=== PATIENT | male | born 1980 | race Caucasian/White ===

== ENCOUNTER → 2016-12-08 | Outpatient (CLI) | payer BC ==
[~2016-12-08] MED LIST: METH1TAB12 PO
== END | disposition home or self-care (01) ==
LOC: C.PATHSPEC 15:35
PROVIDERS: ATTEND Urology
DX: Z30.2 Encounter for sterilization (principal)

== ENCOUNTER 2017-01-01 21:36 | Inpatient (IN) | payer BC ==
[~2017-01-01] VITALS: Ht 177.8 cm; Wt 93.8 kg
[2017-01-01 21:53] VITALS: Ht 177.8 cm; Wt 93.8 kg
[2017-01-01] MEDS ORDERED: SODIUM CHLORIDE 0.9% 1000ML 1,000 ML IV STA ×3 (22:16→23:56)
[2017-01-01 22:37] LABS: URINE APPEARANCE CLEAR (CLEAR); URINE BILIRUBIN NEG (NEG); URINE COLOR ORANGE; URINE NITRITE NEG (NEG); URINE PH 5.5 (4.5-7.5); URINE SPECIFIC GRAVITY 1.006 (1.000-1.030); UROBILINOGEN NEG (NEG)
[2017-01-01 22:39] LABS: MANUAL MICROSCOPIC REQUIRED? NO; REVIEW REQ? NO
[2017-01-01 22:42] LABS: BASO % 0.1 %; BASO ABS # 0.01 K/uL (0-0.2); COMPLETE YES; EOS % 2.4 %; HEMATOCRIT 44.7 % (42-52); IG% 0.2 %; LYMPH % 23.7 %; LYMPH ABS # 2.72 K/uL (1.2-3.4); MEAN CELL VOLUME 86.1 fL (80-100); MEAN CORPUSCULAR HEMOGLOBIN 30.3 pg (25-34); MEAN CORPUSCULAR HGB CONC 35.1 g/dl (32-36); MEAN PLATELET VOLUME 10.4 fL (7.4-10.4); MONO % 9.4 %; NEUT % 64.2 %; PLATELET COUNT 237 K/uL (130-400); RED BLOOD COUNT 5.19 M/uL (4.7-6.1); WHITE BLOOD COUNT 11.49 K/uL (4.8-10.8)
[2017-01-01 22:59] LABS: ALT/SGPT 327 U/L (12-78); BLOOD UREA NITROGEN 14 mg/dl (7-18); BUN/CREATININE RATIO 12.5 (10-20); CALCIUM 8.7 mg/dl (8.5-10.1); CARBON DIOXIDE 24 mmol/L (21-32); CHLORIDE 106 mmol/L (98-107); GLUCOSE 110 mg/dl (70-99); SODIUM 141 mmol/L (136-145)
[2017-01-01] MEDS ORDERED: METH1TAB12 PO (23:04)
--- NOTE | 2017-01-01 23:21 | EMERGENCY ROOM VISIT NOTE ---
History Report prepared by Amadeo: Janet Cervantes Under the Supervision of: Dr. Josh Shannon M.D. First contact with patient: 22:01 Chief Complaint: PAIN (GENERALIZED) Stated Complaint: SEVER MUSCLE SORENESS,BROWN URINE History of Present Illness The patient is a 36 year old male who presents to the Emergency Room with complaints of worsening pain with onset two days ago. He rates his pain as a 7/ 10. The patient worked out two days ago. After his work out, he developed some soreness. He notes that the pain is worse when he moves his arms and that the pain is worse in his shoulders. He has had restricted range of motion in his arms. The patient became concerned when he noticed that his urine was brown this evening. Source of History: patient Onset: two days ago Position: shoulder Symptom Intensity: 7/10 Quality: other (muscle pain) Modifying Factors (Worsening): movement Note: This evening, the patient's urine was brown. Review of Systems See HPI for pertinent positives & negatives. A total of 10 systems reviewed and were otherwise negative. Past Medical & Surgical Medical Problems: (1) No Known Active Medical Problems (2) Rhabdomyolysis Family History Cancer Social History Smoking Status: Never Smoker Marital Status: Housing Status: lives with family Occupation Status: employed Current/Historical Medications Scheduled Methylphenidate Hcl (Ritalin), 20 MG PO DAILY Allergies Coded Allergies: Penicillins (Verified Allergy, Mild, RASH, 01/02/17) Physical Exam Vital Signs Date Time Temp Pulse Resp B/P Pulse Ox O2 Delivery O2 Flow Rate FiO2 01/02/17 00:30 64 18 121/73 97 Room Air 01/01/17 22:34 66 01/01/17 22:26 97 Room Air 01/01/17 22:24 78 20 122/79 97 Room Air 147/89 124/89 01/01/17 21:53 37.1 74 18 136/90 97 Room Air Physical Exam GENERAL: Patient is a healthy-appearing well-nourished HEAD: Normocephalic atraumatic EYES: Ocular movements intact pupils equal and react to light OROPHARYNX mucous membranes are moist no exudates present no erythema or edema present NECK: Supple no nuchal rigidity CHEST: Good equal expansion LUNGS: Clear and equal to auscultation CARDIAC: Normal S1 and S2 ABDOMEN: Soft nontender no guarding BACK: No CVA tenderness EXTREMITIES: No pain upon palpation normal muscle strength in all groups no clubbing cyanosis or edema NEURO: Patient is following commands is answering questions appropriately. Alert and oriented x3 Cranial Nerves 2-12 grossly intact Medical Decision & Procedures Laboratory Results Test 01/01/17 22:05 01/01/17 22:10 01/01/17 22:22 Urine Color ORANGE Urine Appearance CLEAR (CLEAR) Urine pH 5.5 (4.5-7.5) Urine Specific [place] 1.006 (1.000-1.030) Urine Protein 1+ (NEG) Urine Glucose (UA) NEG (NEG) Urine Ketones NEG (NEG) Urine Occult Blood 3+ (NEG) Urine Nitrite NEG (NEG) Urine Bilirubin NEG (NEG) Urine Urobilinogen NEG (NEG) Urine Leukocyte Esterase NEG (NEG) Urine WBC (Auto) 1-5 /hpf (0-5) Urine RBC (Auto) 0-4 /hpf (0-4) Urine Hyaline Casts (Auto) 1-5 /lpf (0-5) Urine Epithelial Cells (Auto) 5-10 /lpf (0-5) Urine Bacteria (Auto) NEG (NEG) Urine Opiates Screen NEG (NEG) Urine Methadone, Qualitative NEG (NEG) Urine Barbiturates NEG (NEG) Urine Phencyclidine (PCP) Level NEG (NEG) Ur Amphetamine/Methamphetamine NEG (NEG) MDMA (Ecstasy) Screen NEG (NEG) Urine Benzodiazepines Screen NEG (NEG) Urine Cocaine Metabolite NEG (NEG) Urine Marijuana (THC) NEG (NEG) Creatine Kinase MB 174.5 ng/ml (0.5-3.6) Creatine Kinase MB Ratio 0.3 (0-3.0) Troponin I < 0.015 ng/ml (0-0.045) Thyroid Stimulating Hormone (TSH) 3.660 uIu/ml (0.300-4.500) Bedside Glucose 98 mg/dl (70-99) Labs reviewed by ED physician. Medications Administered Medications (Trade) Dose Ordered Sig/Rachel Route Start Time Stop Time Status Last Admin Dose Admin Sodium Chloride 1,000 ml @ 999 mls/hr Q1H1M STAT IV 01/01/17 22:16 01/01/17 23:16 DC 01/01/17 22:17 999 MLS/HR Sodium Chloride 1,000 ml @ 999 mls/hr Q1H1M STAT IV 01/01/17 23:09 01/02/17 00:09 DC 01/01/17 23:09 999 MLS/HR Sodium Chloride (Nss 1000ml) 1,000 ml @ 999 mls/hr Q1H1M STAT IV 01/01/17 23:56 01/02/17 00:56 DC 01/01/17 23:56 999 MLS/HR ECG Indication: weakness Rate (beats per minute): 70 Rhythm: normal sinus Findings: no acute ischemic change, no ectopy ED Course 2313: Past medical records reviewed. The patient was evaluated in room C7. A complete history and physical examination was performed. 2216: Sodium Chloride 1000 ml @ 999 mls/hr IV 2309: Sodium Chloride 1000 ml @ 999 mls/hr IV 2356: Sodium Chloride 1000 ml @ 999 mls/hr IV 0030: I discussed the case with Dr. Ozuna ([facility]); he will further evaluate the patient but would like me to consult the form coverer. 0042: I discussed the case with Dr. Fernandes (Nephrology); she agrees with the plan to admit the patient. Medical Decision The patient is a 36 year old male who presents to the ED with complaints of muscle pain. Differential diagnosis: Etiologies such as metabolic, infection, hypo/hyperglycemia, electrolyte abnormalities, cardiac sources, intracerebral event, toxicologic, neurologic, as well as others were entertained. This is a 36-year-old male presents emergency Department with cocoa colored urine. The patient was doing heavy weightlifting on Sunday and has had sore upper muscles since then. He has elevations in his liver enzymes which I believe are incidental to his rhabdomyolysis. His CK is 64,000. The patient was given 3 L of fluid in the emergency department. I did discuss the case with the hospitalist service who agreed to see the patient. Patient was in agreement with the treatment plan. Consults Time Called: 0028 Consulting Physician: Dr. Ozuna ([facility]) Returned Call: 0030 I discussed the case with Dr. Ozuna ([facility]); he will further evaluate the patient but would like me to consult the form coverer. Additional Consults: Time Called: 0040 Consulted Physician: Dr. Fernandes (Nephrology) Returned Call: 004 Additional Comments: I discussed the case with Dr. Fernandes (Nephrology); she agrees with the plan to admit the patient. Impression Primary Impression: Rhabdomyolysis Scribe Attestation The scribe's documentation has been prepared under my direction and personally reviewed by me in its entirety. I confirm that the note above accurately reflects all work, treatment, procedures, and medical decision making performed by me. Departure Information Dispostion Being Evaluated By Hospitalist Referrals Lesly Espitia M.D. (PCP) Patient Instructions [facility] Problem Qualifiers Primary Impression: Rhabdomyolysis Rhabdomyolysis type: non-traumatic Qualified Codes: M62.82 - Rhabdomyolysis
[2017-01-01 23:26] LABS: ALKALINE PHOSPHATASE 91 U/L (45-117); AST/SGOT 1299 U/L (15-37)
[2017-01-02 00:39] LABS: CKMB/CK RATIO 0.3 (0-3.0)
[2017-01-02] MEDS ORDERED: ACETAMINOPHEN 325 MG TAB PO PRN (01:30)
[2017-01-02] MEDS ORDERED: POLYETHYLENE (MIRALAX) 17 GM PACK PO PRN (01:30)
[2017-01-02] MEDS ORDERED: MAGNESIUM HYDROXIDE SUSP 30 ML UDC PO PRN (01:30)
[2017-01-02] MEDS ORDERED: ONDANSETRON INJ 2 MG/ML 2 ML VIAL IV PRN (01:30)
[2017-01-02] MEDS ORDERED: ZOLPIDEM TARTRATE 5 MG TAB PO PRN (01:30)
[2017-01-02] MEDS ORDERED: ALUMINUM/MAGNESIUM/SIMETH (MAALOX MAX) 30 ML UDC PO PRN (01:30)
--- NOTE | 2017-01-02 01:50 | History and Physical ---
History & Physical Date & Time of Service: Jan 02, 2017 at 01:38 Chief Complaint: Sever Muscle Soreness,Brown Urine Primary Care Physician: Lesly Espitia M.D. History of Present Illness Source: patient 36 y/o M who denies a significant medical history aside from ADHD. Pt started a weight lifting regimen 2 days prior after abstaining for an extended period. He developed muscle soreness and brown urine over the past 2 days. Labs drawn in the ER reveal a CK of 65,000 with a normal renal function. Past Medical/Surgical History ADHD Family History Cancer Mother from ovarian CA Does not know his father Social History Pt is a post-doc researcher at [employer] - he does not drink or smoke Smoking Status: Never Smoker Marital Status: Occupational Status: employed Allergies Coded Allergies: Penicillins (Verified Allergy, Mild, RASH, 01/02/17) Home Medications Scheduled Methylphenidate Hcl (Ritalin), 20 MG PO DAILY Review of Systems Constitutional: No chills, No fever, No sweats Eyes: No eye pain, No worsening of vision ENT: No hearing loss, No nasal symptoms Respiratory: No cough, No sputum, No wheezing Cardiovascular: No PND, No chest pain, No orthopnea Abdomen: No nausea, No pain, No vomiting Musculoskeletal: + muscle pain, No joint pain Genitourinary - Male: + problem reported (Brown colored urine), No dysuria, No hematuria Neurologic: No memory loss, No paralysis, No weakness Psychiatric: No depression symptoms Endocrine: No fatigue Hematologic / Lymphatic: No abnormal bleeding/bruising Integumentary: No rash Allergic / Immunologic: No environmental allergies Physical Exam Vital Signs Date Time Temp Pulse Resp B/P Pulse Ox O2 Delivery O2 Flow Rate FiO2 01/02/17 00:30 64 18 121/73 97 Room Air 01/01/17 22:34 66 01/01/17 22:26 97 Room Air 01/01/17 22:24 78 20 122/79 97 Room Air 147/89 124/89 01/01/17 21:53 37.1 74 18 136/90 97 Room Air General Appearance: WD/WN, no apparent distress Head: normocephalic, atraumatic Eyes: normal inspection, PERRL, EOMI ENT: normal ENT inspection, pharynx normal Neck: supple, no JVD Respiratory/Chest: chest non-tender, lungs clear, normal breath sounds, no respiratory distress, no accessory muscle use Cardiovascular: regular rate, rhythm, no edema, no gallop, no JVD, no murmur, normal peripheral pulses Abdomen/GI: normal bowel sounds, non tender, soft Back: normal inspection, no CVA tenderness Extremities/Musculoskelatal: normal inspection, no calf tenderness, normal capillary refill, no pedal edema, normal range of motion Neurologic/Psych: magnetic locater II-XII nml as tested, no motor/sensory deficits, alert, normal mood/affect, normal reflexes, oriented x 3 Skin: normal color, warm/dry, no rash Diagnostics Laboratory Results Results Past 24 Hours Test 01/01/17 22:05 01/01/17 22:10 01/01/17 22:22 Range/Units Urine Color ORANGE Urine Appearance CLEAR CLEAR Urine pH 5.5 4.5-7.5 Urine Specific [place] 1.006 1.000-1.030 Urine Protein 1+ NEG Urine Glucose (UA) NEG NEG Urine Ketones NEG NEG Urine Occult Blood 3+ NEG Urine Nitrite NEG NEG Urine Bilirubin NEG NEG Urine Urobilinogen NEG NEG Urine Leukocyte Esterase NEG NEG Urine WBC (Auto) 1-5 0-5 /hpf Urine RBC (Auto) 0-4 0-4 /hpf Urine Hyaline Casts (Auto) 1-5 0-5 /lpf Urine Epithelial Cells (Auto) 5-10 0-5 /lpf Urine Bacteria (Auto) NEG NEG White Blood Count 11.49 4.8-10.8 K/uL Red Blood Count 5.19 4.7-6.1 M/uL Hemoglobin 15.7 14.0-18.0 g/dL Hematocrit 44.7 42-52 % Mean Corpuscular Volume 86.1 80-100 fL Mean Corpuscular Hemoglobin 30.3 25-34 pg Mean Corpuscular Hemoglobin Concent 35.1 32-36 g/dl Platelet Count 237 130-400 K/uL Mean Platelet Volume 10.4 7.4-10.4 fL Neutrophils (%) (Auto) 64.2 % Lymphocytes (%) (Auto) 23.7 % Monocytes (%) (Auto) 9.4 % Eosinophils (%) (Auto) 2.4 % Basophils (%) (Auto) 0.1 % Neutrophils # (Auto) 7.38 1.4-6.5 K/uL Lymphocytes # (Auto) 2.72 1.2-3.4 K/uL Monocytes # (Auto) 1.08 0.11-0.59 K/uL Eosinophils # (Auto) 0.28 0-0.5 K/uL Basophils # (Auto) 0.01 0-0.2 K/uL RDW Standard Deviation 39.4 36.4-46.3 fL RDW Coefficient of Variation 12.4 11.5-14.5 % Immature Granulocyte % (Auto) 0.2 % Immature Granulocyte # (Auto) 0.02 0.00-0.02 K/uL Sodium Level 141 136-145 mmol/L Potassium Level 4.0 3.5-5.1 mmol/L Chloride Level 106 98-107 mmol/L Carbon Dioxide Level 24 21-32 mmol/L Anion Gap 11.0 3-11 mmol/L Blood Urea Nitrogen 14 7-18 mg/dl Creatinine 1.10 0.60-1.40 mg/dl Est Creatinine Clear Calc Drug Dose 108.8 ml/min Estimated GFR () 101.0 Estimated GFR (Non- 87.1 BUN/Creatinine Ratio 12.5 10-20 Random Glucose 110 70-99 mg/dl Calcium Level 8.7 8.5-10.1 mg/dl Total Bilirubin 0.4 0.2-1 mg/dl Direct Bilirubin < 0.1 0-0.2 mg/dl Aspartate Amino Transf (AST/SGOT) 1299 15-37 U/L Alanine Aminotransferase (ALT/SGPT) 327 12-78 U/L Alkaline Phosphatase 91 45-117 U/L Total Creatine Kinase 40240 39-308 U/L Creatine Kinase MB 174.5 0.5-3.6 ng/ml Creatine Kinase MB Ratio 0.3 0-3.0 Troponin I < 0.015 0-0.045 ng/ml Total Protein 7.6 6.4-8.2 gm/dl Albumin 3.7 3.4-5.0 gm/dl Thyroid Stimulating Hormone (TSH) 3.660 0.300-4.500 uIu/ml Bedside Glucose 98 70-99 mg/dl Impression Assessment and Plan 36 y/o M who denies a significant medical history aside from ADHD. Pt started a weight lifting regimen 2 days prior after abstaining for an extended period. He developed muscle soreness and brown urine over the past 2 days. Labs drawn in the ER reveal a CK of 65,000 with a normal renal function. 1) Rhabdomyolysis - pt will be aggressively hydrated and CK, renal function, electrolytes will be trended - initial CK is markedly elevated however renal function is WNL. There is no clear evidence in favor of urine alkalinization however this should be considered if his creatinine rises. Nephrology should be called if numbers fail to improve. 2) ADHD - unclear if Ritalin can contribute to development of rhabdo - we will hold this regardless pending D/C as he will not require this med in hospital Full code - Heparin prophylaxis Total time for this admit including review of labs, records - discussion with ER attending and Pt - 30 min Level of Care Med/Surg Resuscitation Status FULL RESUSCITATION VTE Prophylaxis VTE Risk Assessment Done? Y/N: Yes Risk Level: Moderate Given or contraindicated: Unfractionated heparin SQ
[2017-01-02 02:31] VITALS: BP 128/63; PULSE 63; TEMP 36.6; O2SAT 97
[2017-01-02 02:48] VITALS: O2SAT 98
[2017-01-02] MEDS: SODIUM CHLORIDE 0.9% 1000ML 1,000 ML IV SCH ×5 (03:02→21:51)
[2017-01-02 03:46] LABS: PROTHROMBIN TIME (PATIENT) 10.8 SECONDS (9.0-12.0)
[2017-01-02 04:08] LABS: BUN/CREATININE RATIO 12.7 (10-20); CALCIUM 7.8 mg/dl (8.5-10.1); PHOSPHORUS 3.3 mg/dl (2.5-4.9); POTASSIUM 4.4 mmol/L (3.5-5.1)
[2017-01-02] MEDS: HEPARIN SOD 5000 UNIT/0.5 ML CARP SQ SCH ×3 (05:34→20:35)
[2017-01-02] MEDS ORDERED: INFLUENZA VIRUS QUAD VACCINE 0.5 ML SYR IM. ONE (08:00)
[2017-01-02] MEDS ORDERED: INFLUENZA ADMINISTRATION CHARGE ONE (08:00)
[2017-01-02 08:21] VITALS: BP 119/77; PULSE 65; TEMP 36.8; O2SAT 96
[2017-01-02 11:21] LABS: BASO % 0.3 %; BASO ABS # 0.02 K/uL (0-0.2); COMPLETE YES; EOS % 2.4 %; HEMATOCRIT 41.8 % (42-52); IG% 0.1 %; LYMPH % 24.7 %; LYMPH ABS # 1.82 K/uL (1.2-3.4); MEAN CELL VOLUME 87.1 fL (80-100); MEAN CORPUSCULAR HGB CONC 34.4 g/dl (32-36); MEAN PLATELET VOLUME 10.2 fL (7.4-10.4); MONO % 7.7 %; NEUT % 64.8 %; PLATELET COUNT 199 K/uL (130-400); WHITE BLOOD COUNT 7.38 K/uL (4.8-10.8)
[2017-01-02 11:46] LABS: BUN/CREATININE RATIO 9.6 (10-20); CALCIUM 8.5 mg/dl (8.5-10.1)
[2017-01-02 13:10] VITALS: BP 131/79; PULSE 72; TEMP 37.1; O2SAT 98
[2017-01-02 15:43] VITALS: BP 115/72; PULSE 63; TEMP 36.9; O2SAT 96
[2017-01-02 16:05] VITALS: O2SAT 96
--- NOTE | 2017-01-02 17:10 | Family Medicine Progress Note ---
Progress Note Date of Service Jan 02, 2017. Subjective Pt evaluation today including: conversation w/ patient, physical exam, chart review, lab review, review of studies, review of inpatient medication list Feels almost mostly back to his normal self. Some mild biceps pain remaining but otherwise feels normal and urinating well. All Other Systems: Reviewed and Negative Medications Current Inpatient Medications Medications (Trade) Dose Ordered Sig/Rachel Route Start Time Stop Time Status Last Admin Dose Admin Heparin Sodium (Porcine) (Heparin Sq 5000 Unit/0.5ml) 5,000 unit Q8H SQ 01/02/17 06:00 02/01/17 05:59 01/02/17 05:34 5,000 UNIT Acetaminophen (Tylenol Tab) 650 mg Q4H PRN PO 01/02/17 01:30 02/01/17 01:29 Al Hydrox/Mg Hydrox/Simethicone (Maalox Max Susp) 15 ml Q4H PRN PO 01/02/17 01:30 02/01/17 01:29 Magnesium Hydroxide (Milk Of Magnesia Susp) 30 ml Q6H PRN PO 01/02/17 01:30 02/01/17 01:29 Polyethylene (Miralax Powder Packet) 17 gm DAILY PRN PO 01/02/17 01:30 02/01/17 01:29 Ondansetron HCl 4 mg 4 mg Q6H PRN IV 01/02/17 01:30 02/01/17 01:29 Sodium Chloride (Nss 1000ml) 1,000 ml @ 250 mls/hr Q4H IV 01/02/17 14:15 02/01/17 14:14 01/02/17 14:20 250 MLS/HR Objective Vital Signs Date Time Temp Pulse Resp B/P Pulse Ox O2 Delivery O2 Flow Rate FiO2 01/02/17 15:43 36.9 63 16 115/72 96 Room Air 01/02/17 13:10 37.1 72 18 131/79 98 Room Air 01/02/17 08:21 36.8 65 20 119/77 96 Room Air 01/02/17 08:10 Room Air 01/02/17 02:48 98 Room Air 01/02/17 02:31 36.6 63 14 128/63 97 Room Air 01/02/17 02:09 70 17 126/69 96 01/02/17 00:30 64 18 121/73 97 Room Air 01/01/17 22:34 66 01/01/17 22:26 97 Room Air 01/01/17 22:24 78 20 122/79 97 Room Air 147/89 124/89 01/01/17 21:53 37.1 74 18 136/90 97 Room Air Physical Exam General Appearance: WD/WN, no apparent distress Neck: supple, no JVD Respiratory/Chest: chest non-tender, lungs clear, normal breath sounds, no respiratory distress, no accessory muscle use Cardiovascular: regular rate, rhythm, no murmur Abdomen: normal bowel sounds, non tender, soft Extremities: no pedal edema, no calf tenderness, normal capillary refill Neurologic/Psychiatric: no motor/sensory deficits, alert, normal mood/affect, oriented x 3 Skin: normal color, warm/dry, no rash Laboratory Results 01/02/17 11:05 Red Blood Count 4.80, Mean Corpuscular Volume 87.1, Mean Corpuscular Hemoglobin 30.0, Mean Corpuscular Hemoglobin Concent 34.4, Mean Platelet Volume 10.2, Neutrophils (%) (Auto) 64.8, Lymphocytes (%) (Auto) 24.7, Monocytes (%) (Auto) 7.7, Eosinophils (%) (Auto) 2.4, Basophils (%) (Auto) 0.3, Neutrophils # (Auto) 4.78, Lymphocytes # (Auto) 1.82, Monocytes # (Auto) 0.57, Eosinophils # (Auto) 0.18, Basophils # (Auto) 0.02 01/02/17 11:05 Test 01/01/17 22:05 01/01/17 22:10 01/01/17 22:22 01/02/17 03:00 Urine Color ORANGE Urine Appearance CLEAR (CLEAR) Urine pH 5.5 (4.5-7.5) Urine Specific [place] 1.006 (1.000-1.030) Urine Protein 1+ (NEG) Urine Glucose (UA) NEG (NEG) Urine Ketones NEG (NEG) Urine Occult Blood 3+ (NEG) Urine Nitrite NEG (NEG) Urine Bilirubin NEG (NEG) Urine Urobilinogen NEG (NEG) Urine Leukocyte Esterase NEG (NEG) Urine WBC (Auto) 1-5 /hpf (0-5) Urine RBC (Auto) 0-4 /hpf (0-4) Urine Hyaline Casts (Auto) 1-5 /lpf (0-5) Urine Epithelial Cells (Auto) 5-10 /lpf (0-5) Urine Bacteria (Auto) NEG (NEG) Prothrombin Time 10.8 SECONDS (9.0-12.0) Prothromb Time International Ratio 1.0 (0.9-1.1) Creatine Kinase MB 174.5 ng/ml (0.5-3.6) Creatine Kinase MB Ratio 0.3 (0-3.0) Troponin I < 0.015 ng/ml (0-0.045) Thyroid Stimulating Hormone (TSH) 3.660 uIu/ml (0.300-4.500) Bedside Glucose 98 mg/dl (70-99) Phosphorus Level 3.3 mg/dl (2.5-4.9) Magnesium Level 2.0 mg/dl (1.8-2.4) Chemistry Specimen Hemolysis Test 01/02/17 11:05 01/02/17 16:59 White Blood Count 7.38 K/uL (4.8-10.8) Red Blood Count 4.80 M/uL (4.7-6.1) Hemoglobin 14.4 g/dL (14.0-18.0) Hematocrit 41.8 % (42-52) Mean Corpuscular Volume 87.1 fL (80-100) Mean Corpuscular Hemoglobin 30.0 pg (25-34) Mean Corpuscular Hemoglobin Concent 34.4 g/dl (32-36) Platelet Count 199 K/uL (130-400) Mean Platelet Volume 10.2 fL (7.4-10.4) Neutrophils (%) (Auto) 64.8 % Lymphocytes (%) (Auto) 24.7 % Monocytes (%) (Auto) 7.7 % Eosinophils (%) (Auto) 2.4 % Basophils (%) (Auto) 0.3 % Neutrophils # (Auto) 4.78 K/uL (1.4-6.5) Lymphocytes # (Auto) 1.82 K/uL (1.2-3.4) Monocytes # (Auto) 0.57 K/uL (0.11-0.59) Eosinophils # (Auto) 0.18 K/uL (0-0.5) Basophils # (Auto) 0.02 K/uL (0-0.2) RDW Standard Deviation 39.8 fL (36.4-46.3) RDW Coefficient of Variation 12.4 % (11.5-14.5) Immature Granulocyte % (Auto) 0.1 % Immature Granulocyte # (Auto) 0.01 K/uL (0.00-0.02) Anion Gap 8.0 mmol/L (3-11) Est Creatinine Clear Calc Drug Dose 119.7 ml/min Estimated GFR () 113.3 Estimated GFR (Non- 97.8 BUN/Creatinine Ratio 9.6 (10-20) Calcium Level 8.5 mg/dl (8.5-10.1) Total Bilirubin 0.8 mg/dl (0.2-1) Direct Bilirubin 0.2 mg/dl (0-0.2) Aspartate Amino Transf (AST/SGOT) 1158 U/L (15-37) Alanine Aminotransferase (ALT/SGPT) 334 U/L (12-78) Alkaline Phosphatase 67 U/L (45-117) Total Creatine Kinase 14278 U/L (39-308) Total Protein 6.5 gm/dl (6.4-8.2) Albumin 3.2 gm/dl (3.4-5.0) Globulin 3.3 gm/dl (2.5-4.0) Albumin/Globulin Ratio 1.0 (0.9-2) Assessment and Plan 36 yo male admitted with orange urine. Diagnosed with rhabdomyolysis and elevated transaminases Rhabdomyolysis - Continue NSS @ 250 MLS/HR - trend CPK and BMP Elevated transaminases - hepatitis panel, CMV, EBV, HIV (consent gained from patient) - add GGT to next labs - add urine toxicology (known he is on Ritalin) Code - Full VTE Prophylaxis - heparin 5000 units SQ Q8H Disposition - continue stay due to raised CPK and transaminases need for IVF and close monitoring as risk of SHARON Resident Physician Supervision Note: I was present with PGY2 Dr. Anil Groves during the history and exam. I discussed the case with the resident and agree with the findings and plan as documented in the note. Any exceptions or clarifications are listed here: none. Pt with minimal myalgias. Feels well otherwise. Denies any recent illness although has 4 young kids several of whom have been ill. VSS gen - nad heart - RRR, s1, s2 lungs - CTA b/l abd - soft, NT labs - CPK 60,000+ ast/alt elevated INR normal A/P: 1. rhabdomyolysis - 2nd to recent reinstitution of weight lifting program. Doubt ritalin (has been on it for months). Viral etiology possible but less likely. Continue copious hydration and serial labs. 2. elevated LFTs - the AST could be elevated 2nd to elevated CPK but I am uncertain if the ALT would rise due to rhabdomyolysis. Will check CMV, EBV, acute hep profile, etc to exclude viral etiology as cause. Serial LFTs. No reported tylenol usage either. Campbell HOOD MD Documented By: Anil Hood Resident Tracking Resident Involvement: Resident Care Provided Care Provided: Adult [facility] Medicine Resident Tracking Resident Involvement: Resident Care Provided Care Provided: Adult Hospital Medicine
[2017-01-02 18:22] LABS: BENZODIAZEPINE, URINE NEG (NEG); COCAINE,URINE NEG (NEG); PHENCYCLIDINE, URINE NEG (NEG)
[2017-01-02 20:23] LABS: INR 1.1 (0.9-1.1); PARTIAL THROMBOPLASTIN RATIO 1.1; PROTHROMBIN TIME (PATIENT) 11.4 SECONDS (9.0-12.0)
[2017-01-02 20:29] LABS: BUN/CREATININE RATIO 7.5 (10-20); CALCIUM 7.9 mg/dl (8.5-10.1); CREATININE 1.1 mg/dl (0.60-1.40); POTASSIUM 3.8 mmol/L (3.5-5.1)
[2017-01-02 20:56] LABS: ALB/GLOB RATIO 0.9 (0.9-2)
[2017-01-03 00:04] VITALS: BP 113/63; PULSE 74; TEMP 36.8; O2SAT 98
[2017-01-03] MEDS: SODIUM CHLORIDE 0.9% 1000ML 1,000 ML IV SCH ×5 (02:08→19:07)
[2017-01-03 07:36] LABS: HEMATOCRIT 38.8 % (42-52); MEAN CORPUSCULAR HEMOGLOBIN 30.5 pg (25-34); MEAN CORPUSCULAR HGB CONC 35.1 g/dl (32-36); PLATELET COUNT 186 K/uL (130-400); RED BLOOD COUNT 4.46 M/uL (4.7-6.1); WHITE BLOOD COUNT 7.01 K/uL (4.8-10.8)
[2017-01-03 07:44] LABS: INR 1.1 (0.9-1.1); PROTHROMBIN TIME (PATIENT) 11.4 SECONDS (9.0-12.0)
[2017-01-03 08:02] VITALS: BP 110/70; PULSE 61; TEMP 36.7; O2SAT 98
[2017-01-03] MEDS: HEPARIN SOD 5000 UNIT/0.5 ML CARP SQ SCH ×3 (08:15→20:51)
[2017-01-03 08:20] LABS: BUN/CREATININE RATIO 7.2 (10-20); CREATININE 0.96 mg/dl (0.60-1.40); POTASSIUM 3.9 mmol/L (3.5-5.1)
[2017-01-03 11:22] VITALS: BP 111/69; PULSE 67; TEMP 36.9; O2SAT 96
--- NOTE | 2017-01-03 14:48 | Family Medicine Progress Note ---
Progress Note Date of Service Jan 03, 2017. Subjective Pt evaluation today including: conversation w/ patient, physical exam, chart review, lab review, review of studies, review of inpatient medication list Voiding: no voiding problems Mild pain in biceps but much improved. No previous history of rhabdomyolysis or muscle pains. No recent known exposure to viral illnesses but is around a 2yo and 3yo at home who have nasal congestion but are otherwise well. No family history of muscular disorders. Cousin on mothers side has alopecia areata as does the patient, but otherwise no autoimmune. Last tattoo 6 months previous and done at a reputable place. All Other Systems: Reviewed and Negative Medications Current Inpatient Medications Medications (Trade) Dose Ordered Sig/Rachel Route Start Time Stop Time Status Last Admin Dose Admin Heparin Sodium (Porcine) (Heparin Sq 5000 Unit/0.5ml) 5,000 unit Q8H SQ 01/02/17 06:00 02/01/17 05:59 01/02/17 05:34 5,000 UNIT Acetaminophen (Tylenol Tab) 650 mg Q4H PRN PO 01/02/17 01:30 02/01/17 01:29 Al Hydrox/Mg Hydrox/Simethicone (Maalox Max Susp) 15 ml Q4H PRN PO 01/02/17 01:30 02/01/17 01:29 Magnesium Hydroxide (Milk Of Magnesia Susp) 30 ml Q6H PRN PO 01/02/17 01:30 02/01/17 01:29 Polyethylene (Miralax Powder Packet) 17 gm DAILY PRN PO 01/02/17 01:30 02/01/17 01:29 Ondansetron HCl 4 mg 4 mg Q6H PRN IV 01/02/17 01:30 02/01/17 01:29 Sodium Chloride (Nss 1000ml) 1,000 ml @ 150 mls/hr Q6H40M IV 01/02/17 14:15 02/02/17 14:14 01/03/17 09:12 250 MLS/HR Objective Vital Signs Date Time Temp Pulse Resp B/P Pulse Ox O2 Delivery O2 Flow Rate FiO2 01/03/17 11:22 36.9 67 14 111/69 96 Room Air 01/03/17 10:54 Room Air 01/03/17 08:10 Room Air 01/03/17 08:02 36.7 61 14 110/70 98 Room Air 01/03/17 01:00 Room Air 01/03/17 00:04 36.8 74 20 113/63 98 Room Air 01/02/17 16:05 96 Room Air 01/02/17 15:43 36.9 63 16 115/72 96 Room Air Physical Exam General Appearance: WD/WN, no apparent distress Eyes: normal inspection, EOMI ENT: normal ENT inspection, pharynx normal Neck: supple, no JVD Respiratory/Chest: chest non-tender, lungs clear, normal breath sounds, no respiratory distress, no accessory muscle use Cardiovascular: regular rate, rhythm, no edema, no JVD, no murmur Abdomen: normal bowel sounds, non tender, soft Extremities: no pedal edema, no calf tenderness, normal capillary refill, + pertinent finding (no extremity muscle pain on examination) Neurologic/Psychiatric: gem stone cutter II-XII nml as tested (nofacial droop), no motor/ sensory deficits (grossly), alert, normal mood/affect, oriented x 3 Skin: normal color, warm/dry, no rash Laboratory Results 01/03/17 07:29 01/03/17 07:29 Test 01/02/17 16:59 01/02/17 19:52 01/03/17 07:29 01/03/17 14:06 Activated Partial Thromboplast Time 27.6 SECONDS (21.0-31.0) Partial Thromboplastin Ratio 1.1 Globulin 3.4 gm/dl (2.5-4.0) Albumin/Globulin Ratio 0.9 (0.9-2) Hepatitis B Surface Antigen NEG (NEG) Hepatitis C Antibody NEG (NEG) HIV (1&2) Ab and P24 Ag, 4th Gener NEG (NEG) Red Blood Count 4.46 M/uL (4.7-6.1) Mean Corpuscular Volume 87.0 fL (80-100) Mean Corpuscular Hemoglobin 30.5 pg (25-34) Mean Corpuscular Hemoglobin Concent 35.1 g/dl (32-36) RDW Standard Deviation 40.1 fL (36.4-46.3) RDW Coefficient of Variation 12.5 % (11.5-14.5) Mean Platelet Volume 10.0 fL (7.4-10.4) Prothrombin Time 11.4 SECONDS (9.0-12.0) Prothromb Time International Ratio 1.1 (0.9-1.1) Anion Gap 8.0 mmol/L (3-11) Est Creatinine Clear Calc Drug Dose 124.7 ml/min Estimated GFR () 119.0 Estimated GFR (Non- 102.7 BUN/Creatinine Ratio 7.2 (10-20) Lactic Acid Level 0.7 mmol/L (0.4-2.0) Calcium Level 8.0 mg/dl (8.5-10.1) Total Bilirubin 0.6 mg/dl (0.2-1) Direct Bilirubin 0.1 mg/dl (0-0.2) Aspartate Amino Transf (AST/SGOT) 966 U/L (15-37) Alanine Aminotransferase (ALT/SGPT) 328 U/L (12-78) Alkaline Phosphatase 62 U/L (45-117) Lactate Dehydrogenase 607 U/L (87-241) Total Creatine Kinase 37341 U/L (39-308) Total Protein 6.0 gm/dl (6.4-8.2) Albumin 2.8 gm/dl (3.4-5.0) Assessment and Plan 36 yo male admitted with orange urine. Diagnosed with rhabdomyolysis and elevated transaminases Rhabdomyolysis - elevated CK (small fraction CKMB like from muscle), LDH, AST and ALT consistent with rhabdo. No concerns for compartment syndrome, DIC or SHARON at present. - hepatitis panel added due to persistently high transaminases despite aggressive IVF resuscitation - Hep BsAg negative, Hep Bc Ab pending, Hep C Ab neg - HIV negative - CMV, EBV pending - TSH normal - GGT added to labs to assess whether transaminases are liver or muscle originated - Urine toxicology negative - given this is his first episode we will not investigate for genetic causes at this stage and likely due to Ritalin use. - Reduce NSS @ 175 MLS/HR, no acidosis to suggest bicarb required - trend CPK and BMP - will add uric acid and phosphate to monitor for electrolyte abnormalities associated with rhabdo - I&Os to monitor UO Code - Full VTE Prophylaxis - heparin 5000 units SQ Q8H Disposition - continue stay due to raised CPK and transaminases need for IVF and close monitoring as risk of SHARON, DIC, compartment syndrome. Resident Physician Supervision Note: I was present with PGY2 Dr. Anil Groves during the history and exam. I discussed the case with the resident and agree with the findings and plan as documented in the note. Any exceptions or clarifications are listed here: none. Pt concerned about "swelling" in right arm but it is near the location of his peripheral IV. Denies myalgias or any extremity pain. Anxious to get home. VSS gen - NAD musculo - all muscle groups x 4 extremities normal; radial pulses 2+ b/l; minimal dependent edema right forearm 2nd to peripheral IV CPK now 48,000 AST 1100 ALT about 350 A/P: 1. rhabdomyolysis - improved. Cont generous hydration with NS; daily CPK. 2. abnormal LFTs - w/u to date negative; await viral studies; consider GI consultation. No evidence of hepatic failure (INR normal, etc). AST could be explained by high CPK but uncertain about ALT. gi HOOD MD Documented By: Anil Hood
[2017-01-03 14:57] VITALS: BP 119/74; PULSE 64; TEMP 36.7; O2SAT 97
[2017-01-03 15:03] LABS: PHOSPHORUS 2.4 mg/dl (2.5-4.9); URIC ACID 3.8 mg/dl (2.6-7.2)
[2017-01-03 15:55] VITALS: O2SAT 97
[2017-01-03 23:48] VITALS: BP 107/61; PULSE 70; TEMP 36.7; O2SAT 98
[2017-01-04] MEDS: SODIUM CHLORIDE 0.9% 1000ML 1,000 ML IV SCH ×2 (01:57→09:25)
[2017-01-04] MEDS: HEPARIN SOD 5000 UNIT/0.5 ML CARP SQ SCH (06:00)
[2017-01-04 07:15] LABS: BUN/CREATININE RATIO 5.1 (10-20); CALCIUM 7.9 mg/dl (8.5-10.1); CREATININE 0.9 mg/dl (0.60-1.40); POTASSIUM 3.6 mmol/L (3.5-5.1)
[2017-01-04 07:48] VITALS: BP 114/74; PULSE 60; TEMP 36.7; O2SAT 99
[2017-01-04 11:55] VITALS: BP 117/72; PULSE 64; TEMP 36.8; O2SAT 98
--- NOTE | 2017-01-04 21:47 | Family Medicine Progress Note ---
Progress Note Date of Service Jan 04, 2017. Subjective Pt evaluation today including: conversation w/ patient, physical exam, chart review, lab review, review of studies, review of inpatient medication list Voiding: no voiding problems No acute issues. No muscle pain. Objective Vital Signs Date Time Temp Pulse Resp B/P Pulse Ox O2 Delivery O2 Flow Rate FiO2 01/04/17 11:55 36.8 64 16 117/72 98 Room Air 01/04/17 08:10 Room Air 01/04/17 07:48 36.7 60 16 114/74 99 Room Air 01/04/17 00:00 Room Air 01/03/17 23:48 36.7 70 16 107/61 98 Room Air Physical Exam General Appearance: WD/WN, no apparent distress Respiratory/Chest: chest non-tender, lungs clear, normal breath sounds, no respiratory distress, no accessory muscle use Cardiovascular: regular rate, rhythm, no murmur Abdomen: normal bowel sounds, non tender, soft Extremities: no calf tenderness, + pertinent finding (no muscle tenderness) Neurologic/Psychiatric: alert, normal mood/affect, oriented x 3 Skin: normal color, warm/dry, no rash Laboratory Results 01/04/17 06:10 Test 01/04/17 06:10 Anion Gap 9.0 mmol/L (3-11) Est Creatinine Clear Calc Drug Dose 133.0 ml/min Estimated GFR () 128.7 Estimated GFR (Non- 111.0 BUN/Creatinine Ratio 5.1 (10-20) Calcium Level 7.9 mg/dl (8.5-10.1) Aspartate Amino Transf (AST/SGOT) 846 U/L (15-37) Alanine Aminotransferase (ALT/SGPT) 336 U/L (12-78) Total Creatine Kinase 00634 U/L (39-308) Assessment and Plan 36 yo male admitted with orange urine. Diagnosed with rhabdomyolysis and elevated transaminases Rhabdomyolysis - elevated CK (small fraction CKMB like from muscle), LDH, AST and ALT consistent with rhabdo. No concerns for compartment syndrome, DIC or SHARON at present. - hepatitis panel added due to persistently high transaminases despite aggressive IVF resuscitation - Hep BsAg negative, Hep Bc Ab pending, Hep C Ab neg - HIV negative - CMV, EBV pending - TSH normal - GGT pending - Urine toxicology negative - given this is his first episode we will not investigate for genetic causes at this stage and likely due to Ritalin use. - NSS @ 175 MLS/HR - trend CPK and BMP - I&Os to monitor UO Code - Full VTE Prophylaxis - heparin 5000 units SQ Q8H. Currently refusing Disposition - continue stay due to raised CPK and transaminases need for IVF and close monitoring as risk of SHARON, DIC, compartment syndrome. Attending Attestation: Pt seen/examined, chart reviewed, care plan d/w PGY1 Dr. Anil Groves. I agree w/ the gordon components of his documentation. Just prior to my visit the patient told staff he wanted to leave AMA. During the visit he denied all complaints. He voiced understanding of the risk of myoglobin injury to the kidneys and risk for acute renal failure. VSS gen - nad heart - RRR, s1, s2 lungs - CTA bl abd - soft ext - all muscle groups nontender to palpation A/P: Severe rhabdomyolysis due to recent weight-lifting session. improving, but certainly at risk of acute renal failure/injury. discussed against medical advice (AMA) policy and what it entails. the patient signed the AMA form. he knows to f/u with his PCP within 24 hours for CPK recheck. Campbell HOOD MD Resident Tracking Resident Involvement: Resident Care Provided Care Provided: Adult Hospital Medicine
--- NOTE | 2017-01-04 21:51 | Discharge Instructions ---
Discharge Instructions Admission Reason for Admission: Rhabdomyolysis (Anli Groves MD) Discharge Discharge Diagnosis / Problem: Rhabdomyolysis (Anil Groves MD) Discharge Goals Goal(s): Improve disease control (Anil Groves MD) Activity Recommendations Activity Limitations: per Instructions/Follow-up section No exercise, lifting or physical exertion until cleared by a physician. (Anil Groves MD) Instructions / Follow-Up Instructions / Follow-Up Patient signed out against medical advice. Recommended to stay in hospital, if signing out AMA he should keep his appointment with his PCP tomorrow. (Anil Groves MD) Current Hospital Diet Patient's current hospital diet: Regular Diet (Anil Groves MD) Discharge Diet Recommended Diet: Regular Diet (Anil Groves MD) Pending Studies Studies pending at discharge: yes List of pending studies: EBV, CMV Hep B core Ab GGT level (Anil Groves MD) Medical Emergencies . Who to Call and When: Medical Emergencies: If at any time you feel your situation is an emergency, please call 911 immediately. . (Anil Groves MD) Non-Emergent Contact Non-Emergency issues call your: Primary Care Provider . (Anil Groves MD) . "Provider Documentation" section prepared by Anil Groves. (Anil Groves MD) Attending Attestation: Pt seen & examined with PGY2 Dr. Anil Groves on day of discharge. Patient was heavily counseled to remain hospitalized due to severe rhabdomyolysis. Despite counseling him about risks of kidney failure from the rhabdomyolysis he signed out against medical advice (AMA). Anil Medellin MD (Anil Medellin MD) VTE Core Measure Inpt VTE Proph given/why not?: Refusal of treatmnt by pt (Anil Groves MD) Resident Tracking Resident Involvement: Resident Care Provided Care Provided: Adult [facility] Medicine (Anil Groves MD)
--- NOTE | 2017-01-04 22:13 | Discharge Summary ---
Discharge Summary Admission Date: Jan 02, 2017 at 01:27 Discharge Date: Jan 04, 2017 Discharge Disposition: Home Principal Diagnosis: Rhabdomyolysis Problems/Secondary Diagnoses: Elevated transaminases (Anil Groves MD) Medication Reconciliation Discontinued Medications: Methylphenidate Hcl (Ritalin) 20 Mg Tab 20 MG PO DAILY, TAB Discharge Exam No acute issues, patient feels well 10 Systems review negative Physical Exam: General Appearance: WD/WN, no apparent distress Respiratory/Chest: no respiratory distress, no accessory muscle use Extremities: normal inspection Neurologic/Psychiatric: alert, oriented x 3 Skin: normal color (Anil Groves MD) Hospital Course Mr Medina was admitted after noticing orange urination and having muscle pain after exercise. On admission his Total CK was 64,000. AST and ALT were also raised. He was treated with aggressive IV fluid resuscitation and his CK started trending down. Because his AST and ALT remained elevated despite IV fluids he was further investigated with GGT (still pending) Hep B s Ag negative, Hep B C Ab pending, Hep C Ab negative. EBV and CMV studies are outstanding on discharge. No sign of SHARON during admission. His CK on discharge was 35,285. He was advised to stay as an inpatient for continued IV fluids to avoid any complications such as acute kidney injury, compartment syndrome or DIC. He wished to sign out AMA and has full capacity to do this. Total Time Spent: Less than 30 minutes This includes examination of the patient, discharge planning, medication reconciliation, and communication with other providers. (Anil Groves MD) Resident Physician Supervision Note: I was present with PGY2 Dr. Anil Groves during the discharge history and exam. I discussed the case with the resident and agree with the findings and plan as documented in this discharge note. Any exceptions or clarifications are listed here: none. 36yo male with h/o ADD who presented with significant myalgias and orange- colored urine both of which started about 1-2 days after restarting a weight- lifting program. He had severe rhabdomyolysis with initial CPK of 64,000. CPK trended down with aggressive IV fluids. He also had transaminitis possibly related to the rhabdomyolysis. On day of discharge the patient's CPK was in the 30,000-35,000 range and despite such he wished to sign out AMA. He was counseled about the dangers of acute renal failure without proper hydration and still wished to sign out AMA. AMA papers were signed by the patient prior to his departure. discharge exam - gen - NAD heart - RRR, s1, s2 lungs - CTA b/l abd - soft, NT, no HSM ext - no evidence of compartment syndrome in his arms or legs He will f/u in 24 hours after discharge with his PCP for repeat CPK. Documented By: Anil Medellin MD (Anil Medellin MD) Discharge Instructions Please refer to the electronic Patient Visit Report (Discharge Instructions) for additional information. (Anil Groves MD) Follow-Up PCP on 01/05/17 (Anil Groves MD) Additional Copies To Lesly Espitia M.D. Resident Tracking Resident Involvement: Resident Care Provided Care Provided: Adult [facility] Medicine (Anil Groves MD)
[2017-01-05 13:59] LABS: CYTOMEGALOVIRUS IGG AB 1.22
== END 2017-01-04 13:10 | disposition left against medical advice (07) | DRG 558 ==
LOC: ENRESERVDT → ENRESERVTM → C.EDB 21:38 → C.4E 01-02 01:27
PROVIDERS: ADMIT Internal Medicine; ATTEND Internal Medicine
DX: M62.82 Rhabdomyolysis (principal); F90.9 Attention-deficit hyperactivity disorder, unspecified type; R74.0 Nonspecific elevation of levels of transaminase and lactic acid dehydrogenase [LDH]; R74.8 Abnormal levels of other serum enzymes; R94.5 Abnormal results of liver function studies; Z79.899 Other long term (current) drug therapy; Z53.21 Procedure and treatment not carried out due to patient leaving prior to being seen by health care provider

== ENCOUNTER → 2017-01-05 | Outpatient (CLI) | payer BC ==
[2017-01-05 10:30] LABS: ALT/SGPT 379 U/L (12-78); AST/SGOT 752 U/L (15-37); BLOOD UREA NITROGEN 3 mg/dl (7-18); BUN/CREATININE RATIO 3.6 (10-20); CALCIUM 8.7 mg/dl (8.5-10.1); CARBON DIOXIDE 30 mmol/L (21-32); CHLORIDE 104 mmol/L (98-107); CREATININE 0.94 mg/dl (0.60-1.40); GLUCOSE 81 mg/dl (70-99); POTASSIUM 3.8 mmol/L (3.5-5.1); SODIUM 142 mmol/L (136-145)
== END | disposition home or self-care (01) ==
LOC: C.LAB 09:23
PROVIDERS: ATTEND Family Medicine
DX: M62.82 Rhabdomyolysis (principal)

== ENCOUNTER → 2017-01-08 | Outpatient (CLI) | payer BC ==
[2017-01-08 09:39] LABS: ALT/SGPT 318 U/L (12-78); AST/SGOT 233 U/L (15-37); BLOOD UREA NITROGEN 8 mg/dl (7-18); BUN/CREATININE RATIO 7.3 (10-20); CALCIUM 9.1 mg/dl (8.5-10.1); CARBON DIOXIDE 34 mmol/L (21-32); CHLORIDE 102 mmol/L (98-107); GLUCOSE 83 mg/dl (70-99); POTASSIUM 4.1 mmol/L (3.5-5.1); SODIUM 142 mmol/L (136-145)
== END | disposition home or self-care (01) ==
LOC: C.LAB 08:19
PROVIDERS: ATTEND Family Medicine
DX: M62.82 Rhabdomyolysis (principal)

== ENCOUNTER → 2017-01-27 | Outpatient (CLI) | payer BC ==
[2017-01-27 12:12] LABS: ALT/SGPT 61 U/L (12-78); AST/SGOT 36 U/L (15-37); BLOOD UREA NITROGEN 15 mg/dl (7-18); BUN/CREATININE RATIO 10.3 (10-20); CALCIUM 8.7 mg/dl (8.5-10.1); CARBON DIOXIDE 27 mmol/L (21-32); CHLORIDE 105 mmol/L (98-107); GLUCOSE 85 mg/dl (70-99); POTASSIUM 4.5 mmol/L (3.5-5.1); SODIUM 140 mmol/L (136-145)
== END ==
LOC: C.LAB 11:07
PROVIDERS: ATTEND Family Medicine
DX: M62.82 Rhabdomyolysis (principal)